=== PATIENT | female | born 1965 | race African-American/Black ===

== ENCOUNTER 2018-09-15 13:54 | Emergency (ER) | payer MEDICAID ==
[~2018-09-15] VITALS: Ht 167.6 cm; Wt 117.9 kg
[2018-09-15 14:01] VITALS: BP 157/98
[2018-09-15] MEDS ORDERED: IBUPROFEN 400 MG TABLET ONE (15:49)
[2018-09-15] MEDS ORDERED: IBUPROFEN 400 MG TABLET PO ONE (16:00)
--- NOTE | 2018-09-15 18:28 | NUR ---
Social service consult received from ED for homelessness. Pt is a 53 year old female who was bib from a bus station due to a trip and fall. Sw met with pt at beside, pt was laying down and pleasant with sw, pt is Aox4. Pt reported to being homeless and having a plan for nursing home. Social work offered pt resources for winter homeless shelters, substance abuse clinics, health clinics and homeless directory resources. Pt accepted all resources, social work informed pt once she is ready for discharge assistance with transportation can possible be provided. Pt is requesting closest train station, sw informed pt that the closest train station is on [address] and between [place] [facility]. Pt received her meal and was properly dressed. Pt signed homeless waiver, homeless waiver filed in pts chart.
== END 2018-09-15 17:35 | disposition home or self-care (01) ==
LOC: ER 14:00
DX: M79.605 Pain in left leg (principal); M25.512 Pain in left shoulder; I10 Essential (primary) hypertension; R53.1 Weakness; I21.9 Acute myocardial infarction, unspecified; Z95.1 Presence of aortocoronary bypass graft; Z98.890 Other specified postprocedural states; W01.198A Fall on same level from slipping, tripping and stumbling with subsequent striking against other object, initial encounter; Y93.89 Activity, other specified; Y92.89 Other specified places as the place of occurrence of the external cause; Y99.8 Other external cause status
CPT/HCPCS: 73030; 73503; 73564; 99283; A4606; 73502